=== PATIENT | male | born 1985 | race Two or more races ===

== ENCOUNTER 2022-08-31 21:48 | Emergency (ER) | payer MEDICAID, OTHER ==
[~2022-08-31] VITALS: Ht 180.3 cm; Wt 72.7 kg
[2022-08-31 22:03] VITALS: BP 155/104
== END 2022-09-01 00:14 | disposition left against medical advice (07) ==
LOC: ER 21:50 → EDSEX 21:50 → ER 09-01 00:14
DX: R07.89 Other chest pain (principal); I10 Essential (primary) hypertension; F17.210 Nicotine dependence, cigarettes, uncomplicated; F12.10 Cannabis abuse, uncomplicated
CPT/HCPCS: 71045; 93005

== ENCOUNTER 2023-07-17 20:31 | Emergency (ER) | payer MEDICAID ==
[~2023-07-17] VITALS: Ht 180.3 cm; Wt 77.0 kg
[2023-07-17 21:19] VITALS: BP 142/90; PULSE 89; RESP 20; O2SAT 98
[2023-07-17] MEDS ORDERED: KETOROLAC TROMETH 60MG/2ML VIAL IM ONE (22:30)
[2023-07-17] MEDS ORDERED: HYDROcodone-ACET 5/325MG TAB PO ONE (22:30)
[2023-07-17] MEDS ORDERED: MUPI2OIN2 EX (23:27)
[2023-07-17] MEDS ORDERED: IBUP-1454 PO (23:27)
== END 2023-07-17 23:58 | disposition home or self-care (01) ==
LOC: ER 20:31
DX: S83.91XA Sprain of unspecified site of right knee, initial encounter (principal); S80.01XA Contusion of right knee, initial encounter; M25.461 Effusion, right knee; I10 Essential (primary) hypertension; F17.210 Nicotine dependence, cigarettes, uncomplicated; Y04.2XXA Assault by strike against or bumped into by another person, initial encounter; Y93.89 Activity, other specified; Y92.89 Other specified places as the place of occurrence of the external cause; Y99.8 Other external cause status
CPT/HCPCS: 73562; 73590; 96372; 99284; J1885